=== PATIENT | male | born 1955 | race Caucasian/White ===

== ENCOUNTER 2017-06-06 19:32 | Observation (INO) ==
--- NOTE | 2017-06-06 20:22 | Emergency Department Note ---
Disposition Clinical Impression: Cholecystitis, Transaminitis Nausea & vomiting Qualifiers: Vomiting type: unspecified Vomiting Intractability: intractable Qualified Code( s): R11.2 - Nausea with vomiting, unspecified Disposition: Admitted As Inpatient Condition: Fair Time of Disposition: 23:17 Nausea/Vomiting/Diarrhea HPI - General Chief complaint: ED Nausea/Vomiting/Diarrhea Stated complaint: v/d x3 wks Time Seen by Provider: 06/06/17 19:48 Source: patient Limitations: no limitations Nursing Notes Reviewed: Yes Vital Signs Reviewed: Yes - History of Present Illness HPI Narrative: Mr. Holbrook is a 58 yo man with no significant medical history who presents to the ED with nausea, vomiting, diarrhea for approximately 3 weeks' duration. He says that the symptoms are intermittent, and are associated with black tarry stools. He has never had problems like this before. He says that in addition to this he has had some vague abdominal pain and bloating. This pain is primarily located in the RUQ and has not radiated anywhere else in the body. About one week ago he went to a separate ER at which point he was given antiemetics and IV fluids and sent home. He said that he has not been able to keep fluids or food down. His vomit consisted mainly of water and/or food, denies hematemesis. He also complains of increased fatigue, and dyspnea on exertion without any chest pain. The patient does admit to subjective fevers, and chills. He also has had some sweats overnight. He denies any recent weight loss. - Related Data Home Medications Medication Instructions Recorded Confirmed Albuterol Sulfate [Proair Hfa] 2 puff IH Q4H PRN 06/06/17 06/06/17 Budesonide/Formoterol 80/4.5 2 puff IH BID 06/06/17 06/06/17 [Symbicort 80/4.5] HYDROcodone/Acet 5/325 mg [[place] 1 tab PO DAILY PRN 06/06/17 06/06/17 5-325 mg] Levothyroxine [Synthroid] 25 mcg PO QAM 06/06/17 06/06/17 Montelukast [Singulair] 10 mg PO QPM 06/06/17 06/06/17 Allergies Allergy/AdvReac Type Severity Reaction Status Date / Time No Known Allergies Allergy Verified 06/06/17 19:33 Constitutional: Reports: fever, chills, night sweats. Denies: weakness Cardiovascular: Reports: dyspnea on exertion. Denies: chest pain, palpitations , orthopnea, paroxysmal nocturnal dyspnea Respiratory: Denies: cough, wheezes, hemoptysis Gastrointestinal: Reports: abdominal pain, nausea, vomiting, diarrhea, melena. Denies: hematemesis, hematochezia Genitourinary: Denies: urgency, dysuria, frequency, hematuria Integumentary: Denies: rash Neurological: Denies: headache Endocrine: Reports: fatigue. Denies: heat or cold intolerance Hematological/Lymphatic: Denies: easy bleeding Past Medical History - Past Medical History Medical history: Reports: other - Social History Smoking Status: Never smoker Smokeless Tobacco Status: No Alcohol use: Reports: none Drug use: Reports: none Physical Exam Gen.: Vitals noted. No acute distress. AAOx3 HEENT: oropharynx clear, Normocephalic, atraumatic Neck: Supple. No adenopathy. Cardiac: RRR, no murmur, +S1/S2 Pulmonary: CTA bilaterally, no wheezes, rales or rhonchi, equal chest expansion Abdomen: Mild distention, abdominal tenderness with palpation of the right upper quadrant with involuntary guarding. There is no palpable fluid wave. Back: Nontender throughout. MSK: ROM intact, no joint swelling noted Extremities: no BLE edema, nontender calf, no cyanosis or clubbing Neuro: A&Ox3, moves all extremities, no focal deficits Psych: Appropriate mood and behavior - General Limitations: no limitations General appearance: alert, in no apparent distress Course Vital Signs Temperature 98 F 06/06/17 19:33 Pulse Rate 63 06/06/17 19:33 Respiratory Rate 18 06/06/17 19:33 Blood Pressure 160/97 06/06/17 19:33 O2 Sat by Pulse Oximetry 100 06/06/17 19:33 Temperature 98.5 F 06/06/17 23:05 Pulse Rate 63 06/06/17 19:33 Respiratory Rate 14 06/06/17 23:05 Blood Pressure 152/97 06/06/17 23:05 O2 Sat by Pulse Oximetry 100 06/06/17 19:33 Oxygen Delivery Oxygen Delivery Room Air Nausea/Vomiting/Diarrhea - Lab Data Result diagrams: 06/06/17 21:22 12/29/17 21:22 Lab Results 06/06/17 06/06/17 06/06/17 Range/Units 20:39 20:42 20:50 WBC (4.3-11.1) K/mcL RBC (4.19-5.50) M/mcL Hgb (12.9-16.9) g/dL Hct (37.5-50.1) % MCV (83.0-100.0) fL MCH (28.0-33.3) pg MCHC (31.6-35.5) g/dL RDW (11.5-14.5) % Plt Count (140-400) K/mcL MPV (9.4-12.4) fL Immature Gran % (0-4) % Seg Neutrophils % % Lymphocytes % % Monocytes % % Eosinophils % % Basophils % % Neutrophils # (1.6-8.9) K/mcL Lymphocytes # (0.6-4.6) K/mcL Monocytes # (0.0-1.3) K/mcL Eosinophils # (0.0-0.6) K/mcL Basophils # (0.0-0.2) K/mcL Dohle Bodies (Not Present) Immature Plt Fraction (1.1-6.1) % Sodium (136-145) mEq/L Potassium (3.5-5.1) mEq/L Chloride (98-107) mEq/L Carbon Dioxide (23-29) mEq/L BUN (6-20) mg/dL Creatinine (0.70-1.30) mg/dL Est GFR ( Amer) (> 60) Est GFR (Non-Af Amer) (> 60) BUN/Creatinine Ratio (6-26) Glucose (70-105) mg/dL Calculated Osmolality (280-300) Lactic Acid (0.5-2.2) mmol/L Calcium (8.6-10.3) mg/dL Total Bilirubin (0.3-1.0) mg/dL Direct Bilirubin (0.0-0.2) mg/dL Indirect Bilirubin (0.0-1.2) mg/dL AST (13-39) Units/L ALT (7-52) Units/L Alkaline Phosphatase (34-104) Units/L Troponin I < 0.03 (< 0.04) ng/mL Serum Total Protein (6.4-8.9) g/dL Albumin (3.5-5.7) g/dL Globulin (2.4-3.5) g/dL Albumin/Globulin Ratio (1.1-2.2) Amylase (29-103) Units/L Lipase (11-82) Units/L Urine Color Yellow (Yellow) Urine Clarity Cloudy A (Clear) Urine pH 6.5 (5.0-8.0) pH Units Ur Specific [place] 1.020 (1.010-1.025) Urine Protein Negative (Neg-Trace) mg/dL Urine Glucose (UA) Normal (Normal) mg/dL Urine Ketones Negative (Negative) mg/dL Urine Blood Trace H (Negative) Urine Nitrite Positive A (Negative) Urine Bilirubin Negative (Negative) Urine Urobilinogen Normal (Normal) mg/dL Ur Leukocyte Esterase Moderate H (Negative) Urine Microscopic RBC 3-5 H (0-3) per hpf Urine Microscopic WBC TNTC H (0-3) per hpf Ur Squamous Epith Cells None Seen (None-Few) per lpf Urine Bacteria Many H (None-Few) per hpf Hyaline Casts Moderate H (None-Few) per lpf Ur Culture Indicated? YES A (NO) Specimen Rejected Clotted 06/06/17 06/06/17 06/06/17 Range/Units 21:22 21:22 21:22 WBC 4.7 (4.3-11.1) K/mcL RBC 4.66 (4.19-5.50) M/mcL Hgb 13.9 (12.9-16.9) g/dL Hct 40.3 (37.5-50.1) % MCV 86.5 (83.0-100.0) fL MCH 29.8 (28.0-33.3) pg MCHC 34.5 (31.6-35.5) g/dL RDW 12.8 (11.5-14.5) % Plt Count 188 (140-400) K/mcL MPV 9.1 L (9.4-12.4) fL Immature Gran % 0.4 (0-4) % Seg Neutrophils % 55.3 % Lymphocytes % 34.7 % Monocytes % 8.3 % Eosinophils % 0.9 % Basophils % 0.4 % Neutrophils # 2.6 (1.6-8.9) K/mcL Lymphocytes # 1.6 (0.6-4.6) K/mcL Monocytes # 0.4 (0.0-1.3) K/mcL Eosinophils # 0.0 (0.0-0.6) K/mcL Basophils # 0.0 (0.0-0.2) K/mcL Dohle Bodies Present A (Not Present) Immature Plt Fraction 2.0 (1.1-6.1) % Sodium 137 (136-145) mEq/L Potassium 3.9 (3.5-5.1) mEq/L Chloride 109 H (98-107) mEq/L Carbon Dioxide 24 (23-29) mEq/L BUN 12 (6-20) mg/dL Creatinine 0.92 (0.70-1.30) mg/dL Est GFR ( Amer) > 60 (> 60) Est GFR (Non-Af Amer) > 60 (> 60) BUN/Creatinine Ratio 13 (6-26) Glucose 105 (70-105) mg/dL Calculated Osmolality 284 (280-300) Lactic Acid 0.9 (0.5-2.2) mmol/L Calcium 8.8 (8.6-10.3) mg/dL Total Bilirubin 0.6 (0.3-1.0) mg/dL Direct Bilirubin 0.1 (0.0-0.2) mg/dL Indirect Bilirubin 0.5 (0.0-1.2) mg/dL AST 40 H (13-39) Units/L ALT 71 H (7-52) Units/L Alkaline Phosphatase 51 (34-104) Units/L Troponin I (< 0.04) ng/mL Serum Total Protein 6.2 L (6.4-8.9) g/dL Albumin 3.8 (3.5-5.7) g/dL Globulin 2.4 (2.4-3.5) g/dL Albumin/Globulin Ratio 1.6 (1.1-2.2) Amylase 31 (29-103) Units/L Lipase 15 (11-82) Units/L Urine Color (Yellow) Urine Clarity (Clear) Urine pH (5.0-8.0) pH Units Ur Specific [place] (1.010-1.025) Urine Protein (Neg-Trace) mg/dL Urine Glucose (UA) (Normal) mg/dL Urine Ketones (Negative) mg/dL Urine Blood (Negative) Urine Nitrite (Negative) Urine Bilirubin (Negative) Urine Urobilinogen (Normal) mg/dL Ur Leukocyte Esterase (Negative) Urine Microscopic RBC (0-3) per hpf Urine Microscopic WBC (0-3) per hpf Ur Squamous Epith Cells (None-Few) per lpf Urine Bacteria (None-Few) per hpf Hyaline Casts (None-Few) per lpf Ur Culture Indicated? (NO) Specimen Rejected Attestation Statement - Attestation Attestation: I examined this patient and my medical decision-making was reviewed with the Resident Physician. I agree with the documented findings, disposition and treatment plan as described except to the extent set forth below. Possible early acute cholecystitis. We will admit to surgical services. Discussed case with general surgery. There is evidence of transaminitis. I spent greater than 35 minutes of critical care time assessing and scaly L patient suffering from hepatic failure from obstructive pathology. This was excluding billable procedures
[2017-06-06 21:04] LABS: Bilirubin,Urine Negative (Negative); Blood,Urine Trace (Negative); Clarity,Urine Cloudy (Clear); Color,Urine Yellow (Yellow); Glucose,Urine (UA) Normal (Normal); Ketones,Urine Negative (Negative); Leukocyte Esterase,Urine Moderate (Negative); Nitrite,Urine Positive (Negative); PH,Urine 6.5 pH Units (5.0-8.0); Protein,Urine Negative (Neg-Trace); Urobilinogen,Urine Normal (Normal)
[2017-06-06 21:06] LABS: Bacteria,Urine Many per hpf (None-Few); Hyaline Casts,Urine Moderate per lpf (None-Few); Squamous Epithelial Cell,Urine None Seen per lpf (None-Few); WBC,Urine TNTC per hpf (0-3)
[2017-06-06 21:30] LABS: Basophils % 0.4 %; Eosinophils % 0.9 %; Hematocrit 40.3 % (37.5-50.1); Hemoglobin 13.9 g/dL (12.9-16.9); Immature Granulocytes % 0.4 % (0-4); Lymphocytes # 1.6 K/mcL (0.6-4.6); Lymphocytes % 34.7 %; Mean Corpuscular HGB Conc 34.5 g/dL (31.6-35.5); Mean Corpuscular Hemoglobin 29.8 pg (28.0-33.3); Mean Corpuscular Volume 86.5 fL (83.0-100.0); Mean Platelet Volume 9.1 fL (9.4-12.4); Monocytes # 0.4 K/mcL (0.0-1.3); Monocytes % 8.3 %; Neutrophils # 2.6 K/mcL (1.6-8.9); Platelet Count 188 K/mcL (140-400); Red Blood Count 4.66 M/mcL (4.19-5.50); Red Cell Distribution Width 12.8 % (11.5-14.5); Segmented Neutrophils % 55.3 %
[2017-06-06 21:42] LABS: Alanine Aminotransferase 71 Units/L (7-52); Albumin 3.8 g/dL (3.5-5.7); Albumin/Globulin Ratio 1.6 (1.1-2.2); Alkaline Phosphatase 51 Units/L (34-104); Amylase 31 Units/L (29-103); Aspartate Amino Transferase 40 Units/L (13-39); BUN/Creatinine Ratio 13 (6-26); Bilirubin,Direct 0.1 mg/dL (0.0-0.2); Bilirubin,Indirect 0.5 mg/dL (0.0-1.2); Bilirubin,Total 0.6 mg/dL (0.3-1.0); Blood Urea Nitrogen 12 mg/dL (6-20); Calcium 8.8 mg/dL (8.6-10.3); Carbon Dioxide 24 mEq/L (23-29); Chloride 109 mEq/L (98-107); Globulin 2.4 g/dL (2.4-3.5); Glucose 105 mg/dL (70-105); Lipase 15 Units/L (11-82); Osmolality,Calculated 284 (280-300); Potassium 3.9 mEq/L (3.5-5.1); Sodium 137 mEq/L (136-145); Total Protein 6.2 g/dL (6.4-8.9); eGFR For African Americans > 60 (> 60); eGFR For Non-African Americans > 60 (> 60)
[2017-06-06 21:55] LABS: Dohle Bodies Present (Not Present)
[2017-06-06] MEDS ORDERED: cefTRIAXone 1,000 MG in Water for inj. (sterile) 10 ML IVP ONE (22:10)
[2017-06-07] MEDS ORDERED: *HR* Morphine 2 MG/ML SYRINGE IVP PRN ×2 (00:09→14:28)
[2017-06-07] MEDS ORDERED: Ondansetron 4 MG/2 ML VIAL IVP PRN ×2 (00:10→14:28)
[2017-06-07] MEDS ORDERED: 0.9 % Sodium Chloride 1,000 ML IVC SCH ×2 (00:15→14:28)
[2017-06-07] MEDS ORDERED: Levothyroxine 25 MCG TABLET PO SCH (06:30)
[2017-06-07] MEDS ORDERED: Budesonide/Formoterol 80/4.5 MDI IH SCH ×2 (10:00→22:00)
--- NOTE | 2017-06-07 10:03 | General Surg History&Physical ---
Date of Encounter: 06/07/17 Time of Encounter: 10:00 Assessment and Plan (1) Rheumatoid arthritis Current Visit: Yes Status: Chronic The assessment and plan as outlined above was discussed with the patient and/or family members who expressed understanding and agreement. All questions were answered. patient just received remicade this past friday Qualifiers: Rheumatoid arthritis location: unspecified site Qualified Code(s): M06.9 - Rheumatoid arthritis, unspecified (2) Diarrhea Current Visit: Yes Status: Acute The assessment and plan as outlined above was discussed with the patient and/or family members who expressed understanding and agreement. All questions were answered. likely due to gallbladder disease Qualifiers: Diarrhea type: unspecified type Qualified Code(s): R19.7 - Diarrhea, unspecified (3) Symptomatic cholelithiasis Current Visit: Yes Status: Acute The assessment and plan as outlined above was discussed with the patient and/or family members who expressed understanding and agreement. All questions were answered. discussed US and labs with patient, his symptoms are consistent with symptomatic cholelithiasis, will plan laparoscopic cholecystectomy, possible cholangiograms, possible open. Risks and benefits were discussed with the patient and he wishes to proceed. Nothing by mouth IV fluid hydration When necessary pain control Antibiotics when necessary (4) Hypothyroid Current Visit: Yes Status: Chronic The assessment and plan as outlined above was discussed with the patient and/or family members who expressed understanding and agreement. All questions were answered. continue home synthroid Qualifiers: Hypothyroidism type: acquired Qualified Code(s): E03.9 - Hypothyroidism, unspecified (5) Asthma Current Visit: Yes Status: Chronic The assessment and plan as outlined above was discussed with the patient and/or family members who expressed understanding and agreement. All questions were answered. continue home medication aggressive pulmonary toilet Qualifiers: Asthma severity: mild Asthma persistence: intermittent Asthma complication type: unspecified Qualified Code(s): J45.20 - Mild intermittent asthma, uncomplicated (6) Nausea & vomiting Current Visit: Yes Status: Acute The assessment and plan as outlined above was discussed with the patient and/or family members who expressed understanding and agreement. All questions were answered. prn antiemetics Qualifiers: Vomiting type: unspecified Vomiting Intractability: intractable Qualified Code(s): R11.2 - Nausea with vomiting, unspecified History of Present Illness Chief complaint: RUQ pain HPI: Mr. Holbrook is a 61 year old male with nausea, vomiting and RUQ pain for three weeks. He has also been having diarrhea, "like a bale sewer" during this times as well. The pain is RUQ and dull without radiation to his back or shoulder. No specific triggers it can occur anytime. He was in ER last week. No fevers, chills or night sweats. He has rheumatoid arthritis and is on remicade, last injection this past friday. When he has symptoms he will have black runny stools he is concerned is blood Past Med Surg Social Fam HX - Past Medical History Source: patient Medical history: asthma, cancer (thyroid - unknown type), coronary artery disease, myocardial infarction, RA, thyroid disease (hypothr), other - Past Surgical History Surgical History: cancer surgery (? thyroid lobectomy for cancer), herniorrhaphy (RLQ), other (cryptorchid (orchiectomy), colonoscopy) - Social History Smoking Status: Never smoker Smokeless Tobacco Status: No Alcohol use: none Drug use: none - Family History Mother Age: 85 Hx Family Cancer: Yes (colon cancer) Brother Hx Family Cardiac Disorders: Yes (heart disease, history of [place]) Medications and Allergies Albuterol Sulfate [Proair Hfa] 2 puff IH Q4H PRN 06/06/17 [History] Budesonide/Formoterol 80/4.5 [Symbicort 80/4.5] 2 puff IH BID 06/06/17 [History ] HYDROcodone/Acet 5/325 mg [[place] 5-325 mg] 1 tab PO DAILY PRN 06/06/17 [History] Levothyroxine [Synthroid] 25 mcg PO QAM 06/06/17 [History] Montelukast [Singulair] 10 mg PO QPM 06/06/17 [History] 3 Allergy/AdvReac Type Severity Reaction Status Date / Time No Known Allergies Allergy Verified 06/06/17 19:33 Review of Systems All systems PM: reviewed and no additional remarkable complaints except as stated All systems PM: A 10-system review of systems was performed and is negative for pertinent findings except as documented above in the HPI. General Surgery Exam Initial Vital Signs Temp Pulse Resp BP Pulse Ox 98 F 63 18 160/97 100 06/06/17 19:33 06/06/17 19:33 06/06/17 19:33 06/06/17 19:33 06/06/17 19:33 - General physical appearance well developed, well nourished, moderate pain - Eyes PERRL, normal ocular movement - ENT normal mucosa, normocephalic - Neck trachea midline - Respiratory normal expansion, clear to auscultation - Cardiovascular Cardiovascular exam: Present: RRR, no murmurs/rubs/gallops - Abdomen Abdomen general surgery: Present: soft, tender. Absent: guarding, rebound Abdominal Tenderness: Present: RUQ - Integumentary Integumentary general surgery: Present: warm and dry, no abnormal pigmentation - Neurologic Present: CN 2-12 grossly intact, normal coordination - Musculoskeletal Present: normal gait, normal posture - Psychiatric Psychiatric general surgery: Present: A&Ox3, speech is normal Results - Labs 06/06/17 21:22 06/06/17 21:22 Abnormal lab results MPV 9.1 fL (9.4-12.4) L 06/06/17 21:22 Dohle Bodies Present (Not Present) A 06/06/17 21:22 Chloride 109 mEq/L (98-107) H 06/06/17 21:22 POC Glucose 91 (58-89) H 06/07/17 05:28 AST 40 Units/L (13-39) H 06/06/17 21:22 ALT 71 Units/L (7-52) H 06/06/17 21:22 Serum Total Protein 6.2 g/dL (6.4-8.9) L 06/06/17 21:22 Urine Clarity Cloudy (Clear) A 06/06/17 20:50 Urine Blood Trace (Negative) H 06/06/17 20:50 Urine Nitrite Positive (Negative) A 06/06/17 20:50 Ur Leukocyte Esterase Moderate (Negative) H 06/06/17 20:50 Urine Microscopic RBC 3-5 per hpf (0-3) H 06/06/17 20:50 Urine Microscopic WBC TNTC per hpf (0-3) H 06/06/17 20:50 Urine Bacteria Many per hpf (None-Few) H 06/06/17 20:50 Hyaline Casts Moderate per lpf (None-Few) H 06/06/17 20:50 Ur Culture Indicated? YES (NO) A 06/06/17 20:50 All other labs normal. - Imaging US - abdomen: report reviewed, image reviewed
--- NOTE | 2017-06-07 10:13 | Anesthesia Evaluation PreOp ---
Date of Encounter: 06/07/17 Time of Encounter: 10:10 - Past History Planned Operation: Lap. 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) Anesthesia History: No Prior Anesthetic Complications, Past Anesthesia ( Thyroidectomy, Hernia, Orchiectomy) Alcohol Use: none Drug use: none Medications and Allergies Albuterol Sulfate [Proair Hfa] 2 puff IH Q4H PRN 06/06/17 [History] Budesonide/Formoterol 80/4.5 [Symbicort 80/4.5] 2 puff IH BID 06/06/17 [History ] HYDROcodone/Acet 5/325 mg [[place] 5-325 mg] 1 tab PO DAILY PRN 06/06/17 [History] Levothyroxine [Synthroid] 25 mcg PO QAM 06/06/17 [History] Montelukast [Singulair] 10 mg PO QPM 06/06/17 [History] 3 Allergy/AdvReac Type Severity Reaction Status Date / Time No Known Allergies Allergy Verified 06/06/17 19:33 - Meds/Allergy Pre-op Review Medications Reviewed: Yes Allergies Reviewed: Yes Beta Blockers on Current Med List: No Anesthesia Results - Labs 06/06/17 21:22 06/06/17 21:22 - Imaging EKG: image reviewed (TYLER, Mod. IVCD) Anesthesia Exam O2 Sat Height 1.57 m Height 1.65 m Weight 71.713 kg Weight 71.894 kg Weight 72.121 kg O2 Sat by Pulse Oximetry 98 O2 Sat by Pulse Oximetry 97 O2 Sat by Pulse Oximetry 97 O2 Sat by Pulse Oximetry 97 O2 Sat by Pulse Oximetry 100 Vital Signs Temp Pulse Resp BP Pulse Ox 98 F 63 18 160/97 100 06/06/17 19:33 06/06/17 19:33 06/06/17 19:33 06/06/17 19:33 06/06/17 19:33 Vital Signs/O2 Sat, Most Current Temp Pulse Resp BP Pulse Ox 97.8 F 66 18 122/72 98 06/07/17 06:32 06/07/17 06:32 06/07/17 06:32 06/07/17 06:32 06/07/17 06:32 Height: 5'2'' Weight: 158# NPO (# of Hours): > 8 hrs Pain Scale: 0 Pain Scale Used: Numeric (1 - 10) - HEENT Pupil (Motor): Pupils equal, EOMI Mallampati: III Teeth: Normal Oral Opening: Greater than 3 - SHINGLE WEAVER LOC: Oriented SHINGLE WEAVER Motor: Normal RUE, Normal LUE, Normal RLE, Normal LLE, Normal Face SHINGLE WEAVER Sensory: Normal: RUE, LUE, RLE, LLE, Face - Cardiac Rhythm: Regular Murmur: None JVD: No Carotid Bruit: No - Pulmonary Breath Sounds: bilateral Clear Respiratory Effort: Symmetrical Anesthesia Assess/Plan ASA Score: 2 Modified Jean Scale for Level of Consciousness: Cooperative, oriented, and tranquil Anesthetic Plan: General Autologous Blood: Yes Monitoring Plan: Standard Monitors Recovery Plan: PACU
[2017-06-07] MEDS ORDERED: CefOXitin 2,000 MG VIAL ONE (12:05)
[2017-06-07] MEDS ORDERED: cefOXitin 2,000 MG in Water for inj. (sterile) 10 ML IVP ONE (12:10)
[2017-06-07] MEDS ORDERED: *HR* FentaNYL (PF) 100 MCG/2 ML VIAL ONE (12:22)
[2017-06-07] MEDS ORDERED: *HR* Propofol 200 MG/20 ML VIAL IVP ONE (12:22)
[2017-06-07] MEDS ORDERED: Dexamethasone 4 MG/ML VIAL ONE (12:22)
[2017-06-07] MEDS ORDERED: Lidocaine -MPF 2% 2 ML VIAL ONE (12:22)
[2017-06-07] MEDS ORDERED: Ondansetron 4 MG/2 ML VIAL ONE (12:22)
[2017-06-07] MEDS ORDERED: *HR* Succinylcholine 200 MG/10 ML VIAL IVP ONE (12:22)
[2017-06-07] MEDS ORDERED: Ondansetron 4 MG/2 ML VIAL IVP ONE (12:41)
[2017-06-07] MEDS ORDERED: Neostigmine Methylsulfate 3 MG/3 ML SYRINGE ONE (12:43)
--- NOTE | 2017-06-07 12:53 | Operative Note ---
Date of procedure: 06/07/17 Pre-op diagnosis: Symptomatic cholelithiasis Post-op diagnosis: same Procedure: Laparoscopic cholecystectomy Complications: none immediate Anesthesia: GETA, local Local Anesthetics: 0.5% Sensorcaine HCL SubQ (cc) (30) Surgeon: Loraine Diana Was there an clerical assistant present: No Air Compressor Engineer Other: Rome Kumar Estimated blood loss (cc): 5 Specimen: gallbladder and contents Condition: stable Disposition: PACU Procedure in Detail: The patient was brought into the operating suite and placed supine on the operating table. Sign-in was performed and everyone was in agreement. Anesthesia was induced and patient was endotracheally intubated by anesthesia without incident and they also placed an OG tube. The abdomen was prepped and draped in the usual sterile fashion. A timeout was performed again everyone was in agreement. A supraumbilical incision was made through the skin into the subcutaneous tissue with an 11 blade. Towel clamps were placed on either side of the umbilicus for retraction. S retractors were used to dissect down to the anterior abdominal wall linea alba fascia. A Veress needle was placed through this incision and a water drop test confirmed placement and the abdomen was insufflated. The abdomen was entered with a 5 mm 0 degree laparoscope on a 5 mm X-nadine trocar. The area and entry was visualized was no bleeding and no apparent bowel injury. A 5 mm subxiphoid port was placed under direct visualization after first incising the skin with an 11 blade. A right upper quadrant subcostal position midclavicular line 5 mm port was placed under direct visualization after first incising skin with 11 blade. The laparoscope was placed in this and we exchanged the supraumbilical port for a 12 mm port under direct visualization. The last 5 mm port was placed in the right upper quadrant subcostal position anterior axillary line after first incising the skin with an 11 blade. The patient was placed in steep reverse Trendelenburg left side down position. The dome of the gallbladder was grasped and retracted cephalad. The infundibulum was grasped and retracted laterally. Using the [place] we dissected out the cystic duct and cystic artery. Three 5 mm hemoclips were placed distally on the cystic duct one proximally and it was transected with curved scissors. The cystic artery was doubly clipped proximally, once distally and transected with curved scissors. The gallbladder was removed off the cystic plate with the Bovie. Any bleeding points were stopped with the Bovie. The gallbladder was placed in a laparoscopic Endo Catch bag and removed via the supraumbilical incision site. The inferior edge of the liver was bluntly retracted cephalad and the cystic plate was copiously irrigated with sterile saline. There was no bleeding or apparent bile leak from the cystic plate and the clips on the cystic artery and duct were intact. All irrigation was suctioned free from the abdomen. All insufflation was suctioned free from the abdomen and the ports removed. The abdominal wall at the supraumbilical incision site was closed with a 0 Vicryl [id number] stitch. 30 mL of 0.5% Marcaine was injected subcutaneously at the 4 port sites. The skin at the three 5 mm port sites were closed with 4-0 Monocryl interrupted subcuticular stitches. The skin at the supraumbilical incision site was closed with a 4-0 Monocryl running subcuticular stitch. Steri-Strips were applied to all wounds. The patient was awoken in the operating suite having tolerated the procedure well and were taken to PACU in stable condition after all lap and ensuring counts were correct at the end of the case.
--- NOTE | 2017-06-07 12:56 | Discharge Summary ---
Date of Encounter: 06/07/17 Time of Encounter: 13:00 - Discharge Diagnosis (1) Rheumatoid arthritis Priority: Secondary Status: Chronic Qualifiers: Rheumatoid arthritis location: unspecified site Qualified Code(s): M06.9 - Rheumatoid arthritis, unspecified (2) Diarrhea Priority: Secondary Status: Acute Qualifiers: Diarrhea type: unspecified type Qualified Code(s): R19.7 - Diarrhea, unspecified (3) Symptomatic cholelithiasis Priority: Primary Status: Acute (4) Hypothyroid Priority: Secondary Status: Chronic Qualifiers: Hypothyroidism type: acquired Qualified Code(s): E03.9 - Hypothyroidism, unspecified (5) Asthma Priority: Secondary Status: Chronic Qualifiers: Asthma severity: mild Asthma persistence: intermittent Asthma complication type: unspecified Qualified Code(s): J45.20 - Mild intermittent asthma, uncomplicated (6) Nausea & vomiting Priority: Secondary Status: Acute Qualifiers: Vomiting type: unspecified Vomiting Intractability: intractable Qualified Code(s): R11.2 - Nausea with vomiting, unspecified - Discharge Medications Prescriptions: OxyCODONE/APAP 5/325 [Percocet 5/325 MG] 1 each PO Q4HR PRN #30 tablet PRN Reason: Pain Docusate [Colace] 100 mg PO BID #30 capsule Home Medications: Albuterol Sulfate [Proair Hfa] 2 puff IH Q4H PRN 06/06/17 [History] Budesonide/Formoterol 80/4.5 [Symbicort 80/4.5] 2 puff IH BID 06/06/17 [History ] HYDROcodone/Acet 5/325 mg [[place] 5-325 mg] 1 tab PO DAILY PRN 06/06/17 [History] Levothyroxine [Synthroid] 25 mcg PO QAM 06/06/17 [History] Montelukast [Singulair] 10 mg PO QPM 06/06/17 [History] Docusate [Colace] 100 mg PO BID #30 capsule 06/07/17 [Rx] OxyCODONE/APAP 5/325 [Percocet 5/325 MG] 1 each PO Q4HR PRN #30 tablet 06/07/17 [Rx] Allergies/Adverse Reactions: 3 Allergy/AdvReac Type Severity Reaction Status Date / Time No Known Allergies Allergy Verified 06/06/17 19:33 General Surgery Exam Initial Vital Signs Temp Pulse Resp BP Pulse Ox 98 F 63 18 160/97 100 06/06/17 19:33 06/06/17 19:33 06/06/17 19:33 06/06/17 19:33 06/06/17 19:33 - General physical appearance well developed, well nourished, no distress, moderate pain (surgical) - Eyes PERRL, normal ocular movement - ENT normal mucosa, normocephalic - Neck trachea midline - Respiratory normal expansion, normal respiratory effort - Cardiovascular Cardiovascular exam: Present: RRR - Incision Incision: Present: clean and dry, intact - Integumentary Integumentary general surgery: Present: warm and dry, no abnormal pigmentation - Neurologic Present: CN 2-12 grossly intact - Musculoskeletal Present: normal posture - Psychiatric Psychiatric general surgery: Present: A&Ox3, speech is normal Date of admission: 06/06/17 22:52 Primary care physician: Dee Dee Meza Discharging clinician: Loraine Diana Anticipated date of discharge: 06/07/17 - Patient Status Disposition: Home, Self-Care Condition: Good Overall status at discharge: patient is progressing back to baseline - Discharge Instructions Instructions: Laparoscopic Cholecystectomy (DC) Follow Up With: Ina Lovelace DO [Primary Care Provider] - Shantelle Aguilar T[employer]DER [Advanced Practice Nurse] - (call for followup appt in two weeks) Additional Instructions: No lifting more than 20 pounds for 4 weeks. Okay to take a shower in 24 hours. No tub baths or pools for 1 week. Okay to ride in the car wearing a seatbelt and climb steps. No driving until off narcotics for 24 hours and able to react safely Remove Steri-Strips in 1 week Do not take pain medicine/narcotics on an empty stomach it will likely cause nausea and possibly vomiting. If pain medication is too strong okay to break in half - Diet and Activity Activity: increase activity as tolerated Diet: advance to your usual diet - Hospital Course Hospital course: Mr. Holbrook is a 61 year old male admitted with a three-week history of symptomatic cholelithiasis. He underwent an uncomplicated laparoscopic cholecystectomy on June 06. Postoperatively he was started on a clear diet and advanced cardiac diet as he could tolerate. He was up ambulating well having appropriate bowel and bladder function. Pain was controlled with by mouth medication. He was discharged home in stable condition. - Time Spent with Patient Total time spent providing and/or coordinating discharge services: Less than 30 minutes Labs on day of discharge: Labs from last 24 hours 06/07/17 05:28 POC Glucose 91 H
[2017-06-07] MEDS: *HR* Morphine 2 MG/ML SYRINGE IVP PRN ×2 (13:16→13:25)
[2017-06-07] MEDS ORDERED: Ketorolac 30 MG/ML VIAL IVP ONE (13:34)
[2017-06-07] MEDS ORDERED: Acetaminophen IV 1,000 MG/100 ML INFUS..BTL IVPB ONE (13:34)
[2017-06-07] MEDS ORDERED: Ringers Solution, Lactated 1,000 ML ONE (13:43)
[2017-06-07] MEDS ORDERED: *HR* OxyCODONE/APAP 5/325 TABLET PO PRN (14:28)
[2017-06-07 19:14] VITALS: BP 120/69
[2017-06-08] MEDS ORDERED: Levothyroxine 25 MCG TABLET PO SCH (06:30)
--- NOTE | 2017-06-10 15:50 | Electrocardiograph Report ---
[address] [address] Test Date: 2017-06-07 Pat Name: Alexis Holbrook Department: 115 Room: 3A Gender: M Quality Intern: [id number] : 1955 Requested By: Loraine Diana Order Number: [id number] Reading MD: Walter Iverson Measurements Intervals [place] Rate: 58 P: 64 FL: 185 QRS: 60 QRSD: 112 T: 44 QT: 423 QTc: 421 Interpretive Statements SINUS BRADYCARDIA MODERATE INTRAVENTRICULAR CONDUCTION DELAY Electronically Signed On 06-10-2017 15:48:43 EST by Walter Iverson
== END 2017-06-07 19:47 | disposition home or self-care (01) ==
LOC: 3ANU 19:32 → EMEROO 19:32 → 3ANU 23:20
PROVIDERS: ADMIT Surgery; ATTEND Surgery